=== PATIENT | female | born 2005 | race Caucasian/White ===

== ENCOUNTER 2023-04-29 21:53 | Emergency (ER) | payer BC, OTHER ==
[~2023-04-29] VITALS: Ht 157.5 cm; Wt 59.0 kg
[2023-04-29 22:04] VITALS: BP 115/77; PULSE 98; RESP 16; TEMP 98.6; O2SAT 99
[2023-04-29 22:45] LABS: FLU A ANTIGEN negative (NEGATIVE); FLU B ANTIGEN negative (NEGATIVE)
[2023-04-29] MEDS: IBUPROFEN 600 MG TAB PO ONE (23:31)
[2023-04-29] MEDS: guaiFENesin DM 200/20 MG-10 ML 10 ML UDC PO ONE (23:34)
[2023-04-29] MEDS: ONDANSETRON 4 MG ODT PO ONE (23:34)
[2023-04-29 23:46] VITALS: BP 121/71; PULSE 86; RESP 18; O2SAT 99
[2023-04-30] MEDS ORDERED: DEXT30SE7 PO (00:50)
== END 2023-04-30 01:07 | disposition home or self-care (01) ==
LOC: MED 21:53
DX: J06.9 Acute upper respiratory infection, unspecified (principal); Z20.822 Contact with and (suspected) exposure to COVID-19; Z79.899 Other long term (current) drug therapy
CPT/HCPCS: 71045; 81025; 87426; 87804; 99284; Q0092; Q0162